=== PATIENT | male | born 1995 | race Two or more races ===

== ENCOUNTER 2024-03-16 06:10 | Emergency (ER) | payer MEDICAID, OTHER ==
[~2024-03-16] VITALS: Ht 172.7 cm; Wt 85.0 kg
[2024-03-16] MEDS ORDERED: ONDANSETRON ODT 4 MG TAB PO ONE (07:00)
[2024-03-16] MEDS ORDERED: KETOROLAC TROMETH 60MG/2ML VIAL IM ONE (07:00)
[2024-03-16 07:22] LABS: Basophils # (auto) 0.1 10 ^3/uL (0-0.2); Basophils % (auto) 0.9 % (0.0-2.0); Eosinophils # (auto) 0 10 ^3/uL (0-0.8); Eosinophils % (auto) 0.5 % (0.0-7.0); Hematocrit 46.2 % (41.0-53.0); Hemoglobin 16.4 g/dL (13.5-17.5); Lymphocytes # (auto) 1.7 10 ^3/uL (0.4-5.4); Lymphocytes % (auto) 18.3 % (10.0-50.0); Mean Corpuscular Hemoglobin 30.3 pg (28.0-32.0); Mean Corpuscular Hgb Conc. 35.4 g/dL (32.0-36.0); Mean Corpuscular Volume 85.8 fL (80.0-100.0); Monocytes # (auto) 0.5 10 ^3/uL (0-1.3); Monocytes % (auto) 5.1 % (0.0-12.0); Neutrophils # (auto) 7.2 10 ^3/uL (1.6-8.6); Neutrophils % (auto) 75.2 % (37.0-80.0); Nucleated Red Blood Cells % 0.1 %; Platelet Count (auto) 231 10^3/uL (140-450); Red Blood Cells 5.39 10^6/uL (4.5-5.90); Red Cell Distribution Width 14.1 % (11.8-14.3); White Blood Cell 9.5 10^3/uL (4.4-10.8)
[2024-03-16 07:35] VITALS: BP 129/87; RESP 15; TEMP 98; O2SAT 98
[2024-03-16 07:38] LABS: Alanine Aminotransferase 24 U/L (7-40); Albumin 4.8 g/dL (3.2-4.8); Alkaline Phosphatase 70 U/L (46-116); Anion Gap 5 (5-15); Aspartate Aminotransferase 21 U/L (13-40); BUN/Creatinine Ratio 7.2 (10.0-20.0); Blood Urea Nitrogen 6 mg/dL (9-23); Calcium 9.9 mg/dL (8.7-10.4); Carbon Dioxide 32 mmol/L (20-31); Chloride 101 mmol/L (98-107); Glucose 106 mg/dL (74-106); Lipase 32 U/L (12-53); Potassium 3.6 mmol/L (3.5-5.1); Sodium 138 mmol/L (136-145)
[2024-03-16 07:39] LABS: Total Protein 7.6 g/dL (5.7-8.2)
[2024-03-16] MEDS: LIDOCAINE VISCOUS 2% 15ML UD PO ONE (07:41)
[2024-03-16] MEDS: MAALOX PLUS or MAALOX 30 ML PO ONE (07:41)
[2024-03-16] MEDS: SODIUM CHLORIDE 0.9% 1,000 ML IVB ONE (07:45)
[2024-03-16] MEDS: DONNATAL 5ml ORAL Elix (BELLADONNA ALK-PHENOBARB) PO ONE (07:45)
[2024-03-16 08:03] VITALS: PULSE 58
[2024-03-16] MEDS: HYDROmorphone HCL 2 MG/ML VL/or syr IV ONE (08:30)
[2024-03-16] MEDS: ONDANSETRON HCL 4 MG/2 ML VIAL IV ONE (09:13)
[2024-03-16] MEDS ORDERED: ZOFR4T PO (09:19)
[2024-03-16] MEDS ORDERED: OMEP20TA PO (09:20)
== END 2024-03-16 09:29 | disposition home or self-care (01) ==
LOC: ER 06:10 → EDBD 06:10 → ER 09:29
DX: K29.00 Acute gastritis without bleeding (principal); E86.0 Dehydration; K21.9 Gastro-esophageal reflux disease without esophagitis; F17.210 Nicotine dependence, cigarettes, uncomplicated; F15.90 Other stimulant use, unspecified, uncomplicated; Z91.013 Allergy to seafood
CPT/HCPCS: 36415; 80053; 83690; 85025; 93005; 96361; 96374; 99284; J2405; J7030